=== PATIENT | female | born 1990 | race African-American/Black ===

== ENCOUNTER 2020-07-08 14:31 | Emergency (ER) | payer OTHER ==
[~2020-07-08] VITALS: Ht 162.6 cm; Wt 76.2 kg
[2020-07-08] MEDS ORDERED: SUPER THERAVIT1 EACH PO (14:45)
[2020-07-08] MEDS ORDERED: ONDANSETRON HCL4 M2 PO (16:02)
[2020-07-08] MEDS ORDERED: NAPROSYN500 MG PO (16:02)
[2020-07-08 16:15] VITALS: BP 125/71
== END 2020-07-08 16:16 | disposition home or self-care (01) ==
LOC: M.ERS 14:31
DX: S06.0X0A Concussion without loss of consciousness, initial encounter (principal); M51.36 Other intervertebral disc degeneration, lumbar region; M54.2 Cervicalgia; V49.69XA Unspecified car occupant injured in collision with other motor vehicles in traffic accident, initial encounter; Y93.89 Activity, other specified; Y92.89 Other specified places as the place of occurrence of the external cause; Y99.8 Other external cause status